=== PATIENT | female | born 2000 | race Caucasian/White ===

== ENCOUNTER 2025-02-16 17:12 | Emergency (ER) | payer OTHER ==
[~2025-02-16] VITALS: Wt 77.1 kg
[2025-02-16] MEDS ORDERED: ESCITALOPRAM OX10 MG PO (17:25)
== END 2025-02-16 19:15 | disposition home or self-care (01) ==
LOC: ED 17:12
DX: S16.1XXA Strain of muscle, fascia and tendon at neck level, initial encounter (principal); S09.90XA Unspecified injury of head, initial encounter; W22.8XXA Striking against or struck by other objects, initial encounter; Y93.89 Activity, other specified; Y92.89 Other specified places as the place of occurrence of the external cause; Y99.8 Other external cause status